=== PATIENT | female | born 1995 | race Caucasian/White ===

== ENCOUNTER 2016-08-20 09:38 | Inpatient (IN) ==
[2016-08-20] MEDS ORDERED: DILAUDID ONE (10:02)
[2016-08-20] MEDS ORDERED: D5 1/2 NS 1,000 ML ONE (10:04)
[2016-08-20] MEDS ORDERED: BLISTEX MEDICATED BERRY LIP BALM TOP PRN (10:21)
[2016-08-20] MEDS ORDERED: ZOFRAN IV ONE (10:30)
[2016-08-20] MEDS ORDERED: DILAUDID IV ONE ×2 (10:30→12:04)
[2016-08-20] MEDS ORDERED: D5 1/2 NS 1,000 ML IV SCH (11:00)
[2016-08-20 11:22] LABS: URINE MICRO REVIEW NEEDED? NO; URINE SOURCE CLEAN CATCH
[2016-08-20 11:26] LABS: BILIRUBIN URINE NEGATIVE (NEGATIVE); BLOOD URINE MODERATE (NEGATIVE); COLOR YELLOW; GLUCOSE URINE NEGATIVE (NEGATIVE); LEUKOCYTES URINE NEGATIVE (NEGATIVE); NITRITE URINE NEGATIVE (NEGATIVE); PROTEIN URINE NEGATIVE (NEGATIVE); SP GRAVITY URINE 1.011; TURBIDITY URINE CLEAR (CLEAR); UROBILINOGEN URINE NORMAL (NORMAL)
[2016-08-20 11:28] LABS: UR EPITHELIAL CELLS <10 /HPF (<10); URINE BACTERIA NEGATIVE /HPF; URINE RBC 20-40 /HPF (<10); URINE WBC <10 /HPF (<10)
--- NOTE | 2016-08-20 12:06 | HISTORY AND PHYSICAL ---
CHIEF COMPLAINT: Right flank pain. HISTORY OF PRESENT ILLNESS: This 21-year-old female with history of renal lithiasis developed severe right flank pain. She was at work as a nurse's aide on the floor and was seen by a general surgeon. He felt it was not an acute abdomen and admitted her for further evaluation. She has a long history of kidney stones, having the first one removed at age 9. She has had intermittent flank pains for over the last year first the left side and now mainly on the right. Her CT scans in September of 2015, December of 2015 and the latest 2 weeks ago did not revealed any obstructing stones. She had a 2 mm stone on the left side. Her last menstrual cycle was 2 weeks ago. She has an appointment with gastroenterology for bowel evaluation tomorrow. The patient states the pain was severe and was only relieved by IV narcotics. The patient denies any gross hematuria but states she always has blood in her urine. 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 PAST MEDICAL HISTORY: Intermittent bilateral flank pains, mitral valve prolapse. CURRENT MEDICATIONS: betapace 10 mg per day. She has been given IV Dilaudid. PAST SURGICAL HISTORY: Cystoscopic exam with ureteroscopy and stone extraction many years ago, cholecystectomy, . SOCIAL HISTORY: No alcohol use. No recent tobacco use. REVIEW OF SYSTEMS: No known drug allergies. Usually in good health. She denies any problems with diabetes, hypertension, strokes, seizures, pulmonary or bowel problems. PHYSICAL EXAMINATION: GENERAL: A thin, age-apparent, normally-developed, white female. Oriented in all ways and cooperative. HEENT: Normal for age. LUNGS: Clear. CARDIOVASCULAR: Regular rate and rhythm. ABDOMEN: Flat, soft, nontender. No hepatosplenomegaly or masses. Normal bowel sounds. BACK: Mild right CVA tenderness. Left side is negative. GENITOURINARY EXAM: Deferred until surgery. EXTREMITIES: No clubbing, cyanosis, or edema. NEURO: No focal deficits. Urinalysis has 20-40 red cells per high-power field. All else negative. IMPRESSION: Patient with history of severe right flank pain, microhematuria, and history of renal lithiasis. PLAN: Cystoscopic exam, bilateral retrograde ureteral pyelograms. If the bilateral retrograde ureteral pyelograms. Show no evidence of obstruction, will not place a double- J stent. If there does seem to be obstruction on the right side we will place a double-J stent. Discussed with patient it would be highly unlikely for her to have a stone since her CT stone search 2 weeks ago had no evidence of right-sided stones and only a 2 mm stone on the left side. The planned procedure, benefits versus risks, possible complications, including, but not limited to, bleeding, infection, not finding a cause for the severe pain, need for further procedures , need to see other specialists has been discussed. She seems to understand and desires to proceed. cc: Dangelo Huddleston MD MTDD
[2016-08-20] MEDS ORDERED: GENTAMICIN ONE ×2 (13:33→13:34)
[2016-08-20] MEDS ORDERED: NS ONE (13:33)
[2016-08-20] MEDS ORDERED: OMNIPAQUE ONE (13:33)
[2016-08-20] MEDS ORDERED: REGLAN ONE (13:35)
[2016-08-20] MEDS ORDERED: PEPCID ONE (13:37)
[2016-08-20] MEDS ORDERED: KEFZOL 1 GM/D5W 1 GM/50 ML IVPB ONE (13:41)
[2016-08-20] MEDS ORDERED: FENTANYL ONE (14:27)
[2016-08-20] MEDS ORDERED: VERSED ONE (15:23)
[2016-08-20] MEDS ORDERED: DIPRIVAN 1% ONE (15:23)
--- NOTE | 2016-08-20 17:36 | OPERATIVE NOTE ---
PROCEDURE DATE: 08/20/2016 PREOPERATIVE DIAGNOSIS: Right flank pain, microhematuria, and history of renal lithiasis. POSTOPERATIVE DIAGNOSIS: Right flank pain, microhematuria, and history of renal lithiasis with normal-appearing urinary collecting systems. PROCEDURE PERFORMED: Cystoscopic exam and bilateral retrograde ureteropyelograms. SURGEON: Dangelo Huddleston MD ANESTHESIA: General via laryngeal mask. FINDINGS: Cystoscopic exam: Urethra--greater than 21 Samoan without stricture. Bladder--normal ureteral orifices bilaterally, clear efflux bilaterally, a very capacious bladder, no papillary lesions, no diverticula, and no cellules. Left retrograde ureteropyelogram normal, without filling defect. Right retrograde ureteropyelogram normal, without filling defect. The right collecting system is slightly larger than the left but empties as much as the left side empties. exam reveals normal external female, normal mucosa, no adnexal masses, and palpably normal cervix and uterus. INDICATIONS FOR PROCEDURE: This 21-year-old female has a long history of renal lithiasis. She has a long history of intermittent flank pain both on the left and the right side. Recently, she developed severe right flank pain and the pain was only controlled with IV narcotics. DESCRIPTION OF PROCEDURE: After informed consent was obtained from the patient and her receiving IV antibiotics, she was taken to the main OR cystoscopy room and placed in supine position. General anesthesia via laryngeal mask was achieved. She was then placed in the low lithotomy position and prepped and draped in the usual sterile fashion for cystoscopic exam. A 21-Samoan sheath cystoscope was passed through the patient's urethra and into the bladder with findings noted above. An 8-Samoan cone-tip catheter was passed through the cystoscope, engaged in the left ureteral orifice. Contrast was injected. The right side was accomplished similarly. Again, no filling defects or obstruction to flow was noted on either side. The bladder was drained. The cystoscope was removed. exam was performed. She tolerated the procedure well. ESTIMATED BLOOD LOSS: Less than 1 mL. DISPOSITION: She was taken to the recovery room in good condition. cc: Dangelo Huddleston MD
[2016-08-20] MEDS ORDERED: NS 1,000 ML IV SCH (17:43)
[2016-08-20] MEDS: DILAUDID IV PRN ×2 (17:58→21:37)
[2016-08-20] MEDS: SODIUM CHLORIDE 0.9% INJ SCH (18:01)
[2016-08-20] MEDS: PROTONIX IV SCH (18:01)
[2016-08-20 18:22] LABS: MANUAL DIFF NEEDED? NO
[2016-08-20 18:23] LABS: BASO% 0.1 % (0.0-0.8); EOS# 0.02 X1000 (0.0-0.7); EOS% 0.3 % (0.0-10.0); HEMATOCRIT 41.1 % (37.0-47.0); HEMOGLOBIN 14.2 g/dL (12.0-16.0); LYMPH# 1.12 X1000 (1.2-3.4); LYMPH% 16.6 % (20.5-51.1); MCH 30.4 PG (27-31); MCHC 34.5 g/dL (33-37); MONO% 1.5 % (1.7-9.3); MPV 11.8 FL (7.4-10.4); NEUT% 81.5 % (42.2-75.2); PLT 184 X1000 (130-400); RBC 4.67 XMIL (4.2-5.4)
[2016-08-20 19:01] LABS: AGAP 12; ALBUMIN 4.1 g/dL (3.5-5.0); ALKALINE PHOSPHATASE 18 U/L (32-104); BUN 9 mg/dL (8-22); CALCIUM 8.8 mg/dL (8.8-10.2); CHLORIDE 104 mmol/L (98-107); COSMO 275; GOT 22 U/L (10-30); GPT 18 U/L (10-36); POTASSIUM 4.3 mmol/L (3.5-5.1); SODIUM 138 mmol/L (136-145); TCO2 22 mmol/L (25-35); TOTAL BILIRUBIN 0.12 mg/dL (0.20-1.00); TOTAL PROTEIN 7.6 g/dL (6.3-8.3)
[2016-08-20 19:28] LABS: SED RATE 10 mm/hr (0-20)
[2016-08-20] MEDS: BENADRYL IV PRN (20:12)
--- NOTE | 2016-08-20 20:12 | CONSULTATION ---
DATE OF CONSULTATION: 08/20/2016 CHIEF COMPLAINT: Abdominal pain. HISTORY OF PRESENT ILLNESS: This is a 21-year-old female with right flank pain. She has a history of renal lithiasis and severe flank pain. She is a nurse tech on the floor. She was evaluated and had some intermittent pain. She has had numerous scans showing nonobstructing stones, but she did have some pain. In any case, she underwent cystoscopy today and there was no obstruction. Unclear where her pain came from. It has been very sharp. She has had numerous ER visits, April, May, July. She had ER visits and it is unclear where this came from or what happened previously. Her last CT scan looks like it was in December and was negative. In any case, the patient is still having severe pain, although she looks controlled although she has had some pain medication for that. PAST MEDICAL HISTORY: 1. She has had recurrent urolithiasis. 2. Endometriosis. 3. Interstitial cystitis. 4. 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 5. Mitral valve prolapse. 6. Possibly SVT because she is on Betapace. PAST SURGICAL HISTORY: 1. Cystoscopy. 2. . 3. Cholecystectomy. SOCIAL HISTORY: No ethanol. Occasional tobacco. REVIEW OF SYMPTOMS: Otherwise negative. PHYSICAL EXAMINATION: Vital signs: Blood pressure 114/68, heart rate of 99, temp 98.1 degrees, 100% on 2 L. Cardiovascular: Regular rate and rhythm. Pulmonary: Bilateral breath sounds. Clear to auscultation. GI: Soft, nontender, nondistended. Bowel sounds were positive. I did not appreciate any guarding or rebound. No clubbing or cyanosis. Lymphatics: No peripheral edema. Neurological: Nonfocal. LABORATORY DATA: I do not have any today. Her urine today was unremarkable. UPT was unremarkable. PROBLEM LIST: Abdominal pain, not otherwise characterized. She was due to see Dr. Rojas tomorrow, so we will watch her tomorrow and get Gastroenterology opinion. I will repeat her CT scan because it has been several months. We will draw some basic labs and follow clinically, including inflammatory markers, treat symptomatically. Continue IV fluids and follow with you. cc: MD Dangelo Jauregui MD
[2016-08-21] MEDS: D5 1/2 NS 1,000 ML IV SCH ×5 (04:50→21:45)
[2016-08-21] MEDS: DILAUDID IV PRN ×5 (05:33→21:39)
[2016-08-21 05:53] LABS: HEMATOCRIT 38.5 % (37.0-47.0); HEMOGLOBIN 12.9 g/dL (12.0-16.0); MCH 30.2 PG (27-31); MCHC 33.5 g/dL (33-37); MCV 90.2 FL (81-99); MPV 11.6 FL (7.4-10.4); RBC 4.27 XMIL (4.2-5.4)
[2016-08-21 06:09] LABS: AGAP 11; BUN 8 mg/dL (8-22); CALCIUM 8.8 mg/dL (8.8-10.2); CHLORIDE 104 mmol/L (98-107); COSMO 281; POTASSIUM 4.2 mmol/L (3.5-5.1); SODIUM 141 mmol/L (136-145); TCO2 26 mmol/L (25-35)
[2016-08-21] MEDS: ULTRAM PO PRN (08:13)
[2016-08-21] MEDS ORDERED: DECADRON ONE (09:08)
[2016-08-21] MEDS ORDERED: EXTENSION SET 32 IN 4522 ONE (09:08)
[2016-08-21] MEDS ORDERED: ROBINUL ONE (09:08)
[2016-08-21] MEDS ORDERED: LR 1,000 ML ONE (09:08)
[2016-08-21] MEDS ORDERED: ANESTHESIA PB SET 88 IN 5742 ONE (09:08)
[2016-08-21] MEDS ORDERED: XYLOCAINE-MPF 2% ONE (09:08)
--- NOTE | 2016-08-21 09:53 | Diag Imaging Result Document ---
PROCEDURE NAME: ABDOMEN/PELVIS W/CONTRAST - 08/20/2016 CT OF THE ABDOMEN WITH INTRAVENOUS CONTRAST: FINDINGS: There is no evidence of acute disease in the visualized portion of the chest. The spleen is at the upper limits of normal in size. The gallbladder has been resected. The liver is unremarkable. The adrenal glands are not enlarged. There is no evidence of hydronephrosis or mass in the kidneys. The right renal pelvis is somewhat prominent being extrarenal in location. There is stool in the colon particularly the ascending and transverse colon. There is oral contrast throughout much of the small bowel. There is no evidence of bowel obstruction. No significant adenopathy is present. CT OF THE PELVIS WITH INTRAVENOUS AND ORAL CONTRAST: FINDINGS: There are apparent bilateral ovarian follicles. No discrete cysts are demonstrated. The appendix is normal in appearance. There is a small amount of free fluid in the cul-de-sac. There is gas in the urinary bladder. This may be related to recent instrumentation but the possibility of cystitis cannot be excluded. There are some bone islands in the femoral head. No acute bony abnormalities are present. IMPRESSION: Mild constipation. Questionable cystitis. Borderline splenomegaly.
[2016-08-21] MEDS ORDERED: DULCOLAX PR ONE (10:07)
[2016-08-21] MEDS: MIRALAX PO SCH ×2 (10:24→21:40)
--- NOTE | 2016-08-21 10:32 | Diag Imaging Result Document ---
PROCEDURE NAME: RETROGRADES 2 OR 3 FILMS - 08/20/2016 BILATERAL URETEROGRAM, 08/20/2016: COMPARISON: 08/05/2016. FINDINGS: The exam was performed by the patient's urologist. Twenty-three images were submitted. The ureters and renal collecting systems are normal bilaterally. There is moderate constipation. IMPRESSION: No abnormality of the urinary collecting system.
[2016-08-21] MEDS: BENADRYL IV PRN ×3 (12:46→22:32)
[2016-08-21] MEDS: SODIUM CHLORIDE 0.9% INJ SCH (17:41)
[2016-08-21] MEDS: PROTONIX IV SCH (17:41)
--- NOTE | 2016-08-21 22:05 | PROGRESS NOTE ---
DATE: 08/21/2016 SUBJECTIVE: She says the pain is a little more under control because of the pain medicine but still hurts in the right flank, right side. Urologic exam is really unremarkable and Dr. Rojas is hoping do a colonoscopy. She may have a high impaction in that right hepatic flexure and he is trying to see if we can clean her out. OBJECTIVE: Vital signs: Temperature 98.4 degrees, pulse 77, respirations 18, blood pressure 116/71. Lungs: Are clear in all lung weaver. Cardiovascular: Regular rhythm and rate without murmur or S3. Good urine output. LAB: Has been unremarkable. Hematocrit stable 38, white count 9600, platelet count 170,000. Sodium 141, potassium 4.2, chloride 104, bicarb 26, BUN 8, creatinine 0.9. Liver functions unremarkable. Note CT of abdomen and pelvis mild constipation, questionable cystitis, borderline splenomegaly. ASSESSMENT AND PLAN: Abdominal pain, right flank pain. Dr. Rojas planned on doing a colonoscopy on Sunday. Her repeat CT scan, basic lab unremarkable. Urologic exam including retrograde cystoscopy per Dr. Huddleston but given the right flank pain, microhematuria and history of renal lithiasis with normal appearing urinary collection system and really the cystoscopic exam was unremarkable so she is getting prepped in hopes of colonoscopy Sunday. Reviewed her lab and orders. No change at this time. cc: Peterson Palmer MD
--- NOTE | 2016-08-22 03:39 | CONSULTATION ---
DATE OF CONSULTATION: 08/21/2016 REQUESTING PHYSICIAN: Dr. Randolph. PRIMARY CARE DOCTOR: Dr. Octavio Oro. REASON FOR CONSULTATION: Abdominal pain since 2015. HISTORY OF PRESENT ILLNESS: Ms. Blue is a 21-year-old female who was admitted on 08/20/2016 with right lower quadrant abdominal pain. Per the patient she has a history of multiple urolithiasis and has been seeing Dr. Huddleston. Yesterday she had a cystoscopy with retrograde pyelogram which was unrevealing for any kind of stones during this admission. After that procedure she continued to have worsening pain in the right lower quadrant pain, going to the periumbilical region and to the back. She had a CT scan done which showed evidence of constipation in the ascending colon and transverse colon, suggesting constipation. The patient has a history of prior chronic constipation and takes stool softeners at home. She has been experiencing worsening abdominal pain since 2015. The pain comes as cramping and sometimes consistent. Last week she had an episode of worsening abdominal pain and cramping with diarrhea lasting 5 days, along with nausea. She has never had a colonoscopy or EGD in the past. She denies noticing any blood in the stools or vomiting blood or black stools. She denies any family history of colon cancer. She has been NPO today but is willing to take orally. She denies any prior history of peptic ulcer disease. PAST MEDICAL HISTORY: 1. History of kidney stones, multiple episodes. 2. Endometriosis. 3. Interstitial cystitis. 4. 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 5. Mitral valve prolapse. 6. Possible SVT. She is on Betapace. PAST SURGICAL HISTORY: 1. Cystoscopy. 2. . 3. Cholecystectomy. SOCIAL HISTORY: Denies history of alcohol or illicit drugs. She has occasional tobacco use. 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 REVIEW OF SYSTEMS: Denies any current fevers, rigors, or chills, chest pain, shortness of breath, dyspnea at rest. Denies any nausea at the moment. Denies any vomiting blood or passing blood in the stools or black stools. She has a history of chronic hematuria and chronic kidney stones and has ongoing symptoms which were being evaluated by Dr. Huddleston. Denies any history of arthritis. Denies any neurologic complaints. Denies any history of recent weight changes. MEDICATIONS: In the home include: 1. Wellbutrin 150 mg once daily. 2. Sertraline 50 mg daily. 3. Klonopin 0.5 mg as needed. 4. Bisoprolol 10 mg daily. 5. Norgestrel/ethinyl estradiol 1 tablet daily. 6. Zofran 4 mg every 6 hours. Medications in the hospital include: 1. Dextrose 5% Fluid. 2. Simethicone/oxybenzone. 3. Diphenhydramine . 4. Dilaudid. 5. Protonix. 6. MiraLAX. 7. Tramadol. 8. One dose of Dulcolax. 9. She is currently on clear liquid diet. PHYSICAL EXAMINATION: Vital signs: Temperature 98 degrees, pulse rate of 62, respiratory rate of 16, blood pressure 120/62, saturating 100% on room air. Body weight of 135 pounds, BMI 22.5 kg. General appearance: Moderate built, moderately nourished, lying in bed, in no acute distress. HEENT: No pallor. No icterus. Pupils equal and react to light. Neck: Supple. Chest: Equal breath sounds. Cardiac: Regular rhythm. No murmur. Abdomen: Soft, nontender. Mild discomfort in the right lower quadrant on deep palpation. No rebound. No guarding. Bowel sounds are hypoactive. No hepatosplenomegaly. Extremities: No cyanosis, clubbing, or edema. Neurologic: She is alert, awake, oriented. LAB: Her hemoglobin and hematocrit are 12.9 and 38.5, white count of 9.6, platelet count of 170,000, MCV of 90.2. Sodium 140, potassium 4.2, chloride 104, bicarb 26, anion gap of 11, BUN of 8, creatinine 0.9, glucose of 128, calcium is 8.8, total bilirubin is 0.12, AST 22, ALT 18, alkaline phosphatase is 18, total protein 7.6, albumin of 4.1, CRP 4.72. Urinalysis showing moderate blood and 20-40 white cells on admission. Urine is negative. IMAGING: CT scan of the abdomen and pelvis done during this admission yesterday showed: 1. No evidence of acute disease in the visualized portion of the chest. 2. The spleen is at the upper limits of normal in size. 3. s/p cholecystectomy. 4. Liver is unremarkable. 5. No evidence of hydronephrosis or mass in the kidney. 6. Right renal pelvis is somewhat prominent, being extrarenal in location. 7. Stool in the colon, particularly the ascending and transverse colon. There is oral contrast throughout much of the small bowel. There is no evidence any bowel obstruction. No significant adenopathy is present. 8. Apparent bilateral ovarian follicles. No discrete cyst demonstrated. Appendix is normal in appearance. Small amount of free fluid in the cul-de-sac. There is gas in the urinary bladder. Question of cystitis cannot be excluded. Retrograde pyelogram done on 08/20/2016 showed no abnormalities of the urinary collecting system. IMPRESSION: 1. Abdominal pain in the right side of the abdomen off and on since March 2016. CT scan showing evidence of constipation in the right colon. 2. Recurrent kidney stones. Removed with Dr. Huddleston. Last cystoscopy with retrograde pyelogram on 08/20 was unrevealing. 3. Chronic hematuria syndrome. 4. Borderline splenomegaly. 5. History of chronic constipation in the past. RECOMMENDATIONS: 1. Will start patient on a clear liquid diet. Will start her on MiraLAX 17 g twice daily mixed with 8 ounces of water. Will encourage the patient to increase her fiber intake to 25-30 g per 24 hours and drink at least 2-3 L of water every day. 2. We will give 1 dose of Dulcolax now. 3. If the patient is able to move her bowels better she may be able to be discharged today or tomorrow and then we can evaluate her for a colonoscopy and an EGD as an outpatient this week. 4. We will also check amylase and lipase. 5. Will continue patient on GI prophylaxis with Protonix. 6. The above plan of care was discussed with the patient and all questions were answered. cc: MD Peterson Mckeon MD MTDD
[2016-08-22] MEDS: D5 1/2 NS 1,000 ML IV SCH ×5 (04:53→21:07)
[2016-08-22 06:00] LABS: AMYLASE 51 U/L (20-200); LIPASE 19 U/L (13-60)
[2016-08-22] MEDS: MIRALAX PO SCH ×2 (09:09→21:06)
[2016-08-22] MEDS: DILAUDID IV PRN ×4 (10:34→21:07)
[2016-08-22] MEDS: BENADRYL IV PRN ×3 (11:14→21:06)
[2016-08-22] MEDS ORDERED: ZOFRAN ODT PO PRN (11:48)
[2016-08-22] MEDS ORDERED: KLONOPIN PO PRN (11:48)
[2016-08-22] MEDS ORDERED: WELLBUTRIN PO SCH (12:00)
[2016-08-22] MEDS: WELLBUTRIN XL PO SCH (12:45)
[2016-08-22] MEDS: ZEBETA PO SCH (12:45)
[2016-08-22] MEDS: ZOLOFT PO SCH (12:45)
[2016-08-22] MEDS: PATIENT'S OWN MED PO SCH (12:46)
[2016-08-22] MEDS: LACTULOSE PO SCH ×2 (14:18→21:06)
[2016-08-22] MEDS ORDERED: GOLYTELY PO ONE (14:31)
--- NOTE | 2016-08-22 15:26 | PROGRESS NOTE ---
DATE: 08/22/2016 SUBJECTIVE: Patient complains of not having a bowel movement after MiraLAX. Still having some right-sided flank pain but is resting comfortably in the bed. OBJECTIVE: Vital signs: Temperature is 98.1, heart rate 74, respiration 18, blood pressure 110/55, O2 is 100% on room air. General: Ms. Blue is a 21-year-old female who is sitting up in the bed in no acute distress. HEENT: Atraumatic, normocephalic. PERRL. Neck: Supple. Trachea midline. Cardiovascular: No murmurs, gallops, or rubs noted. Respiratory: Lung sounds clear to excursion. Nonlabored breathing. Gastrointestinal: Soft. She is tender in the right quadrant to flank area. Positive bowel sounds four quadrants. No bowel movement. Neurologic: Patient is alert and oriented x4. Follows commands. Moves all extremities. Extremities are negative for edema. LABORATORY DATA: Nothing new to report. No new diagnostic data. ASSESSMENT AND PLAN: 1. Abdominal pain on the right side of the abdomen on and off since March of 2016. CT did show evidence of constipation in the right colon. Patient was started on MiraLAX with no results. We have added lactulose t.i.d. 2. Recurrent kidney stones removed by Dr. Huddleston. Last cystoscopy with retrograde pyelogram was on 08/20; that was unrevealing. 3. Chronic hematuria syndrome. 4. Borderline splenomegaly. 5. History of chronic constipation in the past. Patient is tolerating a clear liquid diet, and when the patient does have a bowel movement, she can be discharged for EGD/colonoscopy as an outpatient with Dr. Rojas. Amylase and lipase are both normal. 6. Further recommendations to follow physician evaluation. Dictated by BRENT Maldonado for Peterson Palmer MD cc: Peterson Palmer MD
[2016-08-22] MEDS: PROTONIX IV SCH (17:47)
[2016-08-22] MEDS: SODIUM CHLORIDE 0.9% INJ SCH (17:47)
[2016-08-23] MEDS: WELLBUTRIN XL PO SCH (09:39)
[2016-08-23] MEDS: MIRALAX PO SCH (09:39)
[2016-08-23] MEDS: ZOLOFT PO SCH (09:39)
[2016-08-23] MEDS: ZEBETA PO SCH (09:39)
[2016-08-23] MEDS: PATIENT'S OWN MED PO SCH (09:39)
[2016-08-23] MEDS: LACTULOSE PO SCH ×2 (09:40→15:18)
[2016-08-23] MEDS: BENADRYL IV PRN ×2 (09:47→13:59)
[2016-08-23] MEDS: DILAUDID IV PRN ×2 (09:47→14:00)
--- NOTE | 2016-08-23 12:12 | PROGRESS NOTE ---
DATE: 08/23/2016 SUBJECTIVE: The patient is complaining about no bowel movement. She has tried MiraLAX. She is actually planning to get a colonoscopy and Dr. Rojas has ordered soap suds enema. However, she tells me that she would rather try Colyte. She still has some right-sided flank pain. OBJECTIVE: Vital Signs: Temperature 98.1 degrees, heart rate 74, respirations 18, blood pressure 110/53, O2 saturation 100%. General: A 21-year-old lady who is sitting up in bed, does not seem to be in acute distress. HEENT: No scleral icterus. No conjunctival pallor. Neck: Supple. Trachea in the midline. Heart: Normal first and second heart sounds. Lungs: Clear. Abdomen: No significant tenderness unless deep palpation in the right side of the abdomen but she does have right flank tenderness. Bowel sounds are present and normal. Extremities: Unremarkable. Neurological: Intact. LABORATORY DATA: The laboratory data remains unchanged. ASSESSMENT AND PLAN: 1. Abdominal and right flank pain since March. All she has is constipation on the CT scan. We are trying to get her cleaned out for colonoscopy. 2. Recurrent kidney stones, removed by Dr. Huddleston. The last stone retrieval was on 08/20/2016. 3. Chronic hematuria. 4. Chronic constipation. 5. Colonoscopy in the morning. cc: MD Peterson Dyson MD
[2016-08-23] MEDS ORDERED: FENTANYL ONE (13:05)
[2016-08-23] MEDS ORDERED: DIPRIVAN 1% ONE (13:06)
--- NOTE | 2016-08-23 14:32 | OPERATIVE NOTE ---
PROCEDURE DATE: 08/23/2016 REFERRING PHYSICIAN: Butch Randolph MD PRIMARY CARE PHYSICIAN: Octavio Oro MD PROCEDURES PERFORMED: 1. Esophagogastroduodenoscopy with gastric biopsy. 2. Ileocolonoscopy axis. PROVIDER: Ramirez Rojas MD PREPROCEDURE DIAGNOSES: 1. Abdominal pain in the epigastric/periumbilical region, radiating to the back off and on but worsening since March. 2. Chronic constipation, worsening, and CT scan showing evidence of stool all the way in the right colon. 3. Reflux disease. 4. History of abdominal surgery, recent cholecystectomy, section 2 years ago, and history of exploratory laparotomy in the past. POSTOPERATIVE DIAGNOSES: 1. Normal esophagus, entire length. 2. Z-line visualized at 37 cm. 3. Bile in the stomach, moderate amount. 4. Erosive gastritis, body and antrum, status post biopsy. 5. Normal fundus, cardia, and incisura. 6. Normal duodenal bulb and 2nd portion. 7. Normal terminal ileum. No evidence of any Crohn disease. 8. Stool throughout the colon, thick liquid, in mild to moderate amount, which was lavaged. No evidence of any underlying colitis. 9. Internal hemorrhoids on retroflexion. 10. Torturous colon, left colon. ESTIMATED BLOOD LOSS: Minimal. COMPLICATIONS: None. ANESTHESIA: Monitored anesthesia care per the anesthesiologist. SPECIMENS: Random gastric biopsies. DESCRIPTION OF PROCEDURE: After informed consent, the patient was explained the risks, benefits, indications, and alternatives of the procedure. The patient was prepared for EGD and colonoscopy. The patient was brought to the OR. She was turned into the left lateral position. A bite block was placed. After adequate monitored anesthesia care, the upper scope was gently introduced through the oral vestibule all the way to the 2nd and 3rd portions of the duodenum. The esophagus was normal in its entire length. The Z-line was visualized at 37 cm. The scope was advanced into the stomach, where there was evidence of a moderate amount of bile in the stomach, which was suctioned out. The underlying gastric mucosa showed evidence of erythema, erosions, and friability, suggesting erosive gastritis. This was biopsied to evaluate for H pylori. It could also be bile gastritis. Retroflexion revealed a normal fundus, cardia, and incisura. The duodenal bulb and 2nd and 3rd portions of the duodenum appeared normal. The scope was withdrawn. The air was aspirated as the scope was withdrawn. The patient was then turned around. Rectal exam was performed, which revealed normal rectal tone and no masses. There was no blood on the examining finger. The colonoscope was gently introduced to the anal verge and advanced all the way to the terminal ileum. The terminal ileum was visualized and was normal. There was some stool in the rectum which was lavaged. The cecum was identified using landmarks, IC valve and appendiceal orifice. There was an abundant amount of thick liquid stool in the right colon. This was lavaged. In the left colon, there was mild to moderate amount of thick liquid stool, which was lavaged. The underlying colonic mucosa did not show any evidence of colitis. The colon was tortuous, which could be attributed to previous abdominal surgeries. Retroflexion in the rectum revealed internal hemorrhoids. The air was aspirated as the scope was withdrawn. The patient tolerated the procedure and is currently being monitored in the OR in stable condition. I discussed the findings with the patient's father by phone and all questions were answered. RECOMMENDATIONS: 1. The patient will be on Protonix once daily for 8 weeks and will be weaned down to Zantac 150 p.o. b.i.d. 2. The patient will follow gastroesophageal reflux life changes; avoid excessive tea, coffee, soda, tomatoes, onions, or spicy foods. 3. The patient will be on MiraLAX 34 g once or twice daily and, if needed, we may be able add another agent called Linzess based on her response. 4. The patient was encouraged to increase fiber intake, 25-30 g in 24 hours, and also increase fluid, 2-3 L in 24 hours. 5. We may give her a 1 month course of Carafate for bile gastritis. 6. Further recommendations pending hospital course. cc: MD Peterson Mckeon MD Brian R. James, MD Alexis R. Penot, MD
[2016-08-23] MEDS ORDERED: CLAVE SECONDARY SET 11953 ONE (14:35)
[2016-08-23] MEDS ORDERED: ZOFRAN ONE (14:35)
[2016-08-23] MEDS ORDERED: LR 1,000 ML ONE (14:35)
[2016-08-23] MEDS ORDERED: XYLOCAINE-MPF 2% ONE (14:35)
[2016-08-23] MEDS ORDERED: ANESTHESIA PB SET 88 IN 5742 ONE (14:35)
[2016-08-23] MEDS: ULTRAM PO PRN (15:19)
[2016-08-23] MEDS: D5 1/2 NS 1,000 ML IV SCH (15:31)
[2016-08-23 16:06] VITALS: BP 99/47
--- NOTE | 2016-08-23 16:27 | PROGRESS NOTE ---
DATE: 08/23/2016 SUBJECTIVE: Ms. Blue is feeling much better. She did have results from the lactulose and the MiraLAX and now she is getting a Colyte prep in preparation for colonoscopy tomorrow. Pain has resolved and her tummy is no longer hurting. The right flank pain has resolved. OBJECTIVE: Vital signs: Afebrile, temp 98.1 degrees, pulse 57, respirations 16, blood pressure 107/54. HEENT: Pupils are equal, round. Neck: CVP less than 6 cm. Lungs: Clear in all lung weaver. Cardiovascular: Regular rhythm and rate without murmur or S3. Abdomen: Soft. Skin: Warm and dry. : Urine output over 5 L. LAB: Reviewed from the . ASSESSMENT AND PLAN: Right flank costovertebral and side pain. Urologic workup completely unremarkable. [place] she had impaction at the right hepatic flexure and this seems to have resolved. The plan is for colonoscopy tomorrow. She feels much better. REVIEW OF HER ORDERS: I do not see any change at this point. cc: Peterson Palmer MD
--- NOTE | 2016-08-23 17:37 | DISCHARGE SUMMARY ---
ADMISSION DATE: 08/20/2016 DISCHARGE DATE: 08/23/2016 HISTORY: This is a 21-year-old, presented with right flank pain. History of renal lithiasis, developed severe right flank pain. She worked as a nurse's aide on the floor, was seen by a general surgeon. She is felt she had acute abdomen, admitted for further evaluation. She has a long history kidney stones and first removed at age 9. Has had intermittent flank pain over the last year, left side, mainly on the right at this time. Her CT scan in September in 2015, December 2015, latest 2 weeks ago did not reveal any obstructing stones. A 2 mm stone on the left side. Her menstrual cycle was 2 weeks ago. She had an appointment with vice president of academic affairs for bowel evaluation. Patient states it was severe and only relieved with IV narcotics. Patient denies any gross hematuria, but states that she had blood in her urine. States that she has had pain in her loin and hematuria syndrome. She was told that she had loin pain and hematuria syndrome by report. PAST MEDICAL HISTORY: Intermittent bilateral flank pain. Mitral valve prolapse, She is on Betapace 10 mg a day. HOSPITAL COURSE: She was admitted. Dr. Huddleston did a full workup including cystoscopy, abdominal pelvic CT with really mild constipation, questionable cystitis, borderline splenomegaly but cystoscopy was unrevealing. Dr. Rojas evaluated. [place] her pain could be from a high impaction around the right hepatic colon. They attempted to clean her out and eventually were successful. She had an EGD and colonoscopy. Normal esophagus, bile in the stomach. Moderate amount of erosive gastritis body and antrum, status post biopsies. Colonoscopy unremarkable and felt she could go home. Dr. Rojas wrote her for Ultram 50 mg q.4 hours p.r.n., Protonix 40 mg a day, Carafate 1 g q.6 hours. MiraLAX, which she gets daily, MiraLAX 34 g once to twice a day. She will follow up with Dr. Rojas. Follow up with her primary care. Discharged on 08/23/2016. Continued her previous medications. She was on Zebeta 10 mg a day. Wellbutrin 150 mg a day. Klonopin 0.5 mg at bedtime. Estradiol 1 tablet daily. Zoloft 150 mg daily, will continue that. cc: Peterson Palmer MD
== END 2016-08-23 19:00 | disposition home or self-care (01) ==
LOC: 4N → OBSVTOIN 09:38 → SUATTDRO 09:38
PROVIDERS: ADMIT Emergency Medicine; ATTEND Emergency Medicine